=== PATIENT | female | born 1965 | race Caucasian/White ===

== ENCOUNTER 2018-09-24 05:18 | Observation (INO) | payer OTHER ==
[2018-09-24 05:35] VITALS: BMI 33.3
--- NOTE | 2018-09-24 05:35 | PDOC ---
History of Present Illness - General Stated Complaint: CHEST PAIN Time Seen by Provider: 09/24/18 05:34 History Source: Patient - History of Present Illness Initial Comments: 09/24/18 05:45 The patient is a 53 year old female with a PMH of HLD, GERD, MDD, prophylactic DM treatment with Metformin, who presents to our ED this morning c/o acute onset of chest pain. Pain woke patient from sleep @ 3 a.m. and is pressure like , below her breasts B/L radiating to her back. Endorses subjective dyspnea and palpitations. Denies lightheadedness, diaphoresis. No h/o previous similar pain. H/o stress testing 5 years previous which she believes was normal. The patient denies abdominal pain, nausea/vomiting, diarrhea/constipation, dysuria/hematuria, numbness/tingling. NKDA Surgical: appendectomy Social: lifetime non-smoker, social alcohol, denies other toxic habits PMD: Dr. Antonietta Fam Cutting Torch Operator: Dr. Wilson Past History - Past Medical History Allergies/Adverse Reactions: Allergies Allergy/AdvReac Type Severity Reaction Status Date / Time No Known Drug Allergies Allergy Verified 09/24/18 05:48 Home Medications: Ambulatory Orders Aspirin [Aspir 81] 81 mg PO DAILY 10/11/15 Ezetimibe [Zetia] 10 mg PO HS tablet 10/11/15 Montelukast Sodium [Singulair] 4 mg PO HS 10/11/15 Sertraline HCl 25 mg PO DAILY #7 tablet 10/11/15 metFORMIN HCL [Glucophage] 1,000 mg PO BID #14 tablet 10/11/15 Atorvastatin Ca [Lipitor] 40 mg PO HS 11/23/15 Esomeprazole Magnesium 20 mg PO DAILY 09/24/18 Anemia: No Asthma: No Cancer: No Cardiac Disorders: No CVA: No COPD: No CHF: No Dementia: No Diabetes: Yes GI Disorders: Yes (GERD,HEARTBURN, GASTRIC METAPLASIA) Disorders: No HTN: No Hypercholesterolemia: Yes Liver Disease: No Seizures: No Thyroid Disease: No - Surgical History Abdominal Surgery: No Appendectomy: Yes Cardiac Surgery: No Cholecystectomy: No Lung Surgery: No Neurologic Surgery: No Orthopedic Surgery: No - Suicide/Smoking/Psychosocial Hx Smoking History: Never smoked Have you smoked in the past 12 months: No Hx Alcohol Use: Yes (OCCASIONAL) Drug/Substance Use Hx: No Substance Use Type: None Hx Substance Use Treatment: No Review of Systems - Review of Systems Constitutional: No: Chills, Fever HEENTM: No: Blurred Vision, Double Vision Respiratory: Yes: Shortness of Breath Cardiac (ROS): Yes: Chest Pain, Palpitations. No: Lightheadedness, Syncope ABD/GI: No: Constipated, Diarrhea, Nausea, Vomiting *Physical Exam - Physical Exam General Appearance: Yes: Nourished, Appropriately Dressed HEENT: positive: Normal Voice, Hearing Grossly Normal Neck: positive: Trachea midline, Supple Respiratory/Chest: positive: Lungs Clear, Normal Breath Sounds. negative: Labored Respiration, Rapid RR Cardiovascular: positive: S1, S2. negative: Edema, JVD Gastrointestinal/Abdominal: positive: Normal Bowel Sounds, Soft. negative: Distended, Guarding, Rebound, Tenderness, Hernia, Mass Extremity: positive: Normal Capillary Refill, Normal Inspection Integumentary: positive: Normal Color, Dry, Warm Neurologic: positive: Fully Oriented, Alert Heart Score/ECG Review - ECG Impressions Comment:: 09/24/18 05:57 NSR, HR 79, Prolonged TW (430), normal intervals, no deviations, no RACIEL/STD/TWI , good R wave progression V1-V6 ED Treatment Course - LABORATORY CBC & Chemistry Diagram: 09/24/18 06:10 09/24/18 06:10 Medical Decision Making - Medical Decision Making 09/24/18 05:47 53 year old female with chest pain that radiates to her back. VS unremarkable. Frontal diagnosis: r/o ACS, costochondritis, muskoskeletal, gastritis, pancreatitis, cholecystitis, biliary colic. Less likely dissection given BP. Wells Score 0. Will obtain Troponin, BNP, EKG, Troponin x2. Reassess. 09/24/18 05:48 BP 132/67 - Left arm BP 133/71 - Right arm 09/24/18 05:58 ECG non-ischemic as documented in ECG section of EMR 09/24/18 06:34 Patient reassessed. Symptomatically improved s/p Morphine. 09/24/18 06:44 CBC unremarkable Troponin, BNP pending 09/24/18 06:54 Troponin (-) x1. LFT's mildly elevated. Heart Score 4 Will sign patient out to Dr. Posadas (Resident) and Dr. Hess (Attending). *DC/Admit/Observation/Transfer Diagnosis at time of Disposition: Chest pain - Referrals - Patient Instructions - Post Discharge Activity
[2018-09-24] MEDS ORDERED: morphine CARPU-JECT 4 MG/1 ML DISP.SYRIN IVPUSH ONE (05:42)
[2018-09-24] MEDS ORDERED: morphine SULFATE 4 MG/ML VIAL ONE (05:50)
[2018-09-24 06:20] LABS: BASO % 0.5 % (0-2.0); EOS % 1.3 % (0-4.5); HEMOGLOBIN 12.5 GM/dL (10.7-15.3); MCH 28.4 pg (25.7-33.7); MCHC 32.8 g/dl (32.0-36.0); MEAN CELL VOLUME 86.6 fl (80-96); MEAN PLT VOLUME 7.4 fl (7.5-11.1); NEUT % 69.2 % (42.8-82.8); PLATELET COUNT 298 K/MM3 (134-434); RBC 4.39 M/mm3 (3.60-5.2); RDW 14.3 % (11.6-15.6); WHITE BLOOD COUNT 7.9 K/mm3 (4.0-10.0)
--- NOTE | 2018-09-24 06:36 | PDOC ---
Attending Attestation - Resident Resident Name: DaveSu - ED Attending Attestation I have performed the following: I have examined & evaluated the patient, The case was reviewed & discussed with the resident, I agree w/resident's findings & plan, Exceptions are as noted - HPI HPI: 09/24/18 06:30 53F pmh htn here with chest pain. Woke from sleep secondary to intense, central pressure like px a/w dyspnea and palpitations. Pt was given ASA and NTG by ems, took ASA at home as well. GENERAL: Well-appearing, well-nourished. No apparent distress. HEENT: Normocephalic, atraumatic. PERRL, EOM intact. CARDIOVASCULAR: Normal S1, S2. Regular rate and rhythm. PULMONARY: Clear to auscultation bilaterally. ABDOMEN: Soft, non-distended, non-tender. EXTREMITIES: Normal ROM in all four extremities. No gross deformities. SKIN: Warm, dry. No rash NEUROLOGICAL: No focal neurological deficits. typical chest pain, r/o ACS, low risk for PE per Well's f/u labs, trend trops, ekg likely tele obs for high risk cp
[2018-09-24 06:52] LABS: ALBUMIN 3.2 g/dl (3.4-5.0); ALK PHOS 110 U/L (45-117); ANION GAP 12 MMOL/L (8-16); BILIRUBIN,TOTAL 0.4 mg/dL (0.2-1); BLOOD UREA NITROGEN 9 mg/dL (7-18); CALCIUM 8.7 mg/dL (8.5-10.1); CHLORIDE 106 mmol/L (98-107); CO2 25 mmol/L (21-32); CREATININE 0.9 mg/dL (0.55-1.3); GLUCOSE,RANDOM 126 mg/dL (74-106); LIPASE 159 U/L (73-393); N-TERMINAL BNP 27.7 pg/ml (5-125); POTASSIUM 3.9 mmol/L (3.5-5.1); SGOT/AST 73 U/L (15-37); SGPT/ALT 64 U/L (13-61); SODIUM 143 mmol/L (136-145); TOT PROT 6.4 g/dl (6.4-8.2)
--- NOTE | 2018-09-24 07:24 | PDOC ---
*Physical Exam - Vital Signs Last Vital Signs Temp Pulse Resp BP Pulse Ox 97.8 F 76 48 H 133/72 99 09/24/18 05:28 09/24/18 05:45 09/24/18 05:45 09/24/18 05:45 09/24/18 05:45 - Physical Exam Comments: 09/24/18 08:36 General Appearance: Nourished. No Apparent Distress HEENT: No Pharyngeal Erythema, Tonsillar Exudate, Tonsillar Erythema Neck: No Cervical Lymphadenopathy Respiratory/Chest: Lungs Clear, Normal Breath Sounds. No Crackles, Rales, Rhonchi, Wheezing Cardiovascular: Regular Rhythm, Regular Rate. No Murmur, Gallops, Rubs Gastrointestinal/Abdominal: Normal Bowel Sounds, Soft. No Guarding, Rebound, Tenderness Musculoskeletal: No CVA Tenderness Extremity: Normal Capillary Refill Integumentary: Normal Color, Dry, Warm Neurologic: Fully Oriented, Alert, Normal Mood/Affect, Normal Response ED Treatment Course - LABORATORY CBC & Chemistry Diagram: 09/24/18 06:10 09/24/18 06:10 - ADDITIONAL ORDERS Additional order review: Laboratory Results 09/24/18 06:10 Sodium 143 Potassium 3.9 Chloride 106 Carbon Dioxide 25 Anion Gap 12 BUN 9 Creatinine 0.9 Creat Clearance w eGFR > 60 Random Glucose 126 H Calcium 8.7 Total Bilirubin 0.4 AST 73 H ALT 64 H Alkaline Phosphatase 110 Creatine Kinase 92 Troponin I < 0.02 B-Natriuretic Peptide 27.7 Total Protein 6.4 Albumin 3.2 L Lipase 159 09/24/18 06:10 RBC 4.39 MCV 86.6 MCHC 32.8 RDW 14.3 MPV 7.4 L Neutrophils % 69.2 Lymphocytes % 23.0 Monocytes % 6.0 Eosinophils % 1.3 Basophils % 0.5 - Medications Given in the ED: ED Medications Discontinued Medications Generic Name Dose Route Start Last Admin Trade Name Freq PRN Reason Stop Dose Admin Morphine Sulfate 4 mg 09/24/18 05:42 09/24/18 05:55 Morphine Injection - IVPUSH 09/24/18 05:43 4 mg ONCE ONE Administration Progress Note - Progress Note Progress Note: The patient is a 53 year old female with a history of HTN, HLD, Pre-diabetes who presents for evaluation of chest pain. The patient is pending lab results and likely observation admission for concerning chest pain. Medical Decision Making - Medical Decision Making 09/24/18 08:37 CBC, cmp, troponin are unremarkable. Chest plain film is unremarkable. EKG does not demonstrate any concerning findings. We discussed the case with the admitting team who accepted the patient for observation admission. *DC/Admit/Observation/Transfer Diagnosis at time of Disposition: Chest pain Qualifiers: Chest pain type: unspecified Qualified Code(s): R07.9 - Chest pain, unspecified - Discharge Dispostion Condition at time of disposition: Stable Decision to Admit order: Yes - Referrals - Patient Instructions - Post Discharge Activity
--- NOTE | 2018-09-24 07:26 | HP ---
CHIEF COMPLAINT:Chest pain PCP: Dr. Antonietta Fam Sword Swallower: Dr. Wilson (last seen 5yrs ago) HISTORY OF PRESENT ILLNESS: 53 yo F with PMHx of HTN, HLD, and DMII presents with chest pain. She states that she was awoken from sleep with chest pain. She describes constant 8/10 substernal chest pressure that radiated below bilateral breast and to the back. Associated with some SOB. No alleviating or aggravating factors. She saw a special forces senior sergeant for chest pain 5yrs ago and stress test was negative at that time. Pain is not reproducible with palpation. Of note she endorses that occasionally she feels as if her heart "flips". This feeling only last for a few seconds but it does concern her that she has some irregular heart beat. Currently denies CP, REBOLLAR, SOB, palpitations, abdominal pain, fever,chills, nausea or vomiting. ER course was notable for: (1)EKG: NSR @ 69 with normal intervals and axis , no ischemic changes. ;ASA given (2)Troponin I (-) x1 (3)Lipase WNL Recent Travel: NONE PAST MEDICAL HISTORY: HTN, HLD, DM II, GERD PAST SURGICAL HISTORY: Appendectomy Social History: Smoking:never Alcohol:social Drugs: denies Family History: Allergies No Known Drug Allergies Allergy (Verified 09/24/18 05:48) HOME MEDICATIONS: Home Medications Medication Instructions Recorded Aspirin [Aspir 81] 81 mg PO DAILY 10/11/15 Ezetimibe [Zetia] 10 mg PO HS tablet 10/11/15 Montelukast Sodium [Singulair] 4 mg PO HS 10/11/15 Sertraline HCl 25 mg PO DAILY #7 tablet 10/11/15 metFORMIN HCL [Glucophage] 1,000 mg PO BID #14 tablet 10/11/15 Atorvastatin Ca [Lipitor] 40 mg PO HS 11/23/15 Esomeprazole Magnesium 20 mg PO DAILY 09/24/18 REVIEW OF SYSTEMS CONSTITUTIONAL: Absent: fever, chills, diaphoresis, generalized weakness, malaise, loss of appetite, weight change HEENT: Absent: rhinorrhea, nasal congestion, throat pain, throat swelling, difficulty swallowing, mouth swelling, ear pain, eye pain, visual changes CARDIOVASCULAR:chest pain, palpitations Absent: , syncope, , irregular heart rate, lightheadedness, peripheral edema RESPIRATORY: shortness of breath Absent: cough, , dyspnea with exertion, orthopnea, wheezing, stridor, hemoptysis GASTROINTESTINAL: Absent: abdominal pain, abdominal distension, nausea, vomiting, diarrhea, constipation, melena, hematochezia GENITOURINARY: Absent: dysuria, frequency, urgency, hesitancy, hematuria, flank pain, genital pain MUSCULOSKELETAL: Absent: myalgia, arthralgia, joint swelling, back pain, neck pain SKIN: Absent: rash, itching, pallor HEMATOLOGIC/IMMUNOLOGIC: Absent: easy bleeding, easy bruising, lymphadenopathy, frequent infections ENDOCRINE: Absent: unexplained weight gain, unexplained weight loss, heat intolerance, cold intolerance NEUROLOGIC: Absent: headache, focal weakness or paresthesias, dizziness, unsteady gait, seizure, mental status changes, bladder or bowel incontinence PSYCHIATRIC: Absent: anxiety, depression, suicidal or homicidal ideation, hallucinations. PHYSICAL EXAMINATION Vital Signs - 24 hr 09/24/18 09/24/18 05:28 05:45 Temperature 97.8 F Pulse Rate 85 76 Respiratory 18 48 H Rate Blood Pressure 137/69 133/72 O2 Sat by Pulse 100 99 Oximetry (%) GENERAL: AAOx3, NAD HEAD: NCAT EYES: PERRLA,EOMI, sclera anicteric, conjunctiva clear. No lid lag. EARS, NOSE, THROAT: Moist mucous membranes. NECK:Supple without lymphadenopathy, JVD, or masses. LUNGS: CTAB. No wheezes, and no crackles. No accessory muscle use. HEART: RRR, normal S1 and S2 without murmur, rub or gallop. ABDOMEN: Soft, NTND, NABS, no guarding, no rebound, no masses. No hepatomegaly or splenomegaly. MUSCULOSKELETAL: Normal range of motion at all joints. No bony deformities or tenderness. No CVA tenderness. LOWER EXTREMITIES: 2+ pulses, warm, well-perfused. No calf tenderness. trace edema. NEUROLOGICAL: Cranial nerves II-XII intact. Normal speech. PSYCHIATRIC: Cooperative. Good eye contact. Appropriate mood and affect. SKIN: Warm, dry, normal turgor, no rashes or lesions noted, normal capillary refill. Laboratory Results - last 24 hr 09/24/18 09/24/18 06:10 06:10 WBC 7.9 RBC 4.39 Hgb 12.5 Hct 38.0 MCV 86.6 MCH 28.4 MCHC 32.8 RDW 14.3 Plt Count 298 MPV 7.4 L Absolute Neuts (auto) 5.5 Neutrophils % 69.2 Lymphocytes % 23.0 Monocytes % 6.0 Eosinophils % 1.3 Basophils % 0.5 Nucleated RBC % 0 Sodium 143 Potassium 3.9 Chloride 106 Carbon Dioxide 25 Anion Gap 12 BUN 9 Creatinine 0.9 Creat Clearance w eGFR > 60 Random Glucose 126 H Calcium 8.7 Total Bilirubin 0.4 AST 73 H ALT 64 H Alkaline Phosphatase 110 Creatine Kinase 92 Troponin I < 0.02 B-Natriuretic Peptide 27.7 Total Protein 6.4 Albumin 3.2 L Lipase 159 ASSESSMENT/PLAN: 53 yo F with PMHx of HTN, HLD, and DMII presents with chest pain, placed on observation to rule out ACS. Problem List - Problem (1) Chest pain Assessment/Plan: will r/o ACS * Place on observation to telemetry * continuous monitoring * trend trops Q6H (first set negative) * Consult cardiology for possible stress test. * ASA given in ED - continue ASA 81mg daily * lipid panel pending. * Echo pending. (2) DM II (diabetes mellitus, type II), controlled Assessment/Plan: metformin held * ADA diet * BGM ACHS * ISS ACHS (3) Anxiety and depression Assessment/Plan: * Amitriptyline HCl (Elavil -) 25 mg PO HS * Sertraline HCl (Zoloft -) 25 mg PO DAILY (4) Reactive airway disease Assessment/Plan: Montelukast Sodium (Singulair -) 5 mg PO HS (5) DVT prophylaxis Assessment/Plan: Lovenox 40mg SQ daily Visit type - Emergency Visit Emergency Visit: Yes ED Registration Date: 09/24/18 Care time: The patient presented to the Emergency Department on the above date and was hospitalized for further evaluation of their emergent condition. - New Patient This patient is new to me today: Yes Date on this admission: 09/26/18 - Critical Care Critical Care patient: No
[2018-09-24 08:13] LABS: CHOLESTEROL 192 mg/dL (50-200); HDL CHOLESTEROL 49 mg/dL (40-60); TRIGLYCERIDES 75 mg/dL (0-150)
--- NOTE | 2018-09-24 11:07 | EKG ---
Test Reason : Blood Pressure : / mmHG Vent. Rate : 079 BPM Atrial Rate : 079 BPM P-R Int : 142 ms QRS Dur : 086 ms QT Int : 430 ms P-R-T Axes : 053 025 032 degrees QTc Int : 493 ms NORMAL SINUS RHYTHM PROLONGED QT ABNORMAL ECG WHEN COMPARED WITH ECG OF 20-JUN-2010 16:02, NO SIGNIFICANT CHANGE WAS FOUND Confirmed by SAILAJA RUBI MD ([id number]) on 09/24/2018 11:07:10 AM Referred By: Confirmed By:SAILAJA RUBI MD
[2018-09-24] MEDS: SERTRALINE HCL 25 MG TABLET (FP) PO SCH (11:16)
[2018-09-24] MEDS: ENOXAPARIN NA (PORCINE) 40 MG/0.4 ML DISP.SYRIN SQ SCH (11:16)
[2018-09-24] MEDS: PANTOPRAZOLE 20 MG TABLET (FP) PO SCH (11:16)
[2018-09-24] MEDS: ASPIRIN COATED 81 MG TABLET.EC PO SCH (11:16)
[2018-09-24] MEDS: INSULIN SLIDING SCALE (NOVOLOG) 1 VIAL SQ SCH ×3 (11:23→21:57)
--- NOTE | 2018-09-24 11:50 | PN ---
Teaching Attending Note Name of Resident: Amanuel Madrid ATTENDING PHYSICIAN STATEMENT I saw and evaluated the patient. I reviewed the resident's note and discussed the case with the resident. I agree with the resident's findings and plan as documented. SUBJECTIVE: OBJECTIVE: Vital Signs Period Temp Pulse Resp BP Sys/Thakkar Pulse Ox Last 24 Hr 97.8 F 76-85 18-48 133-137/69-72 99-100 Laboratory Results - last 24 hr 09/24/18 09/24/18 09/24/18 06:10 06:10 11:22 WBC 7.9 RBC 4.39 Hgb 12.5 Hct 38.0 MCV 86.6 MCH 28.4 MCHC 32.8 RDW 14.3 Plt Count 298 MPV 7.4 L Absolute Neuts (auto) 5.5 Neutrophils % 69.2 Lymphocytes % 23.0 Monocytes % 6.0 Eosinophils % 1.3 Basophils % 0.5 Nucleated RBC % 0 Sodium 143 Potassium 3.9 Chloride 106 Carbon Dioxide 25 Anion Gap 12 BUN 9 Creatinine 0.9 Creat Clearance w eGFR > 60 POC Glucometer [id number] Random Glucose 126 H Calcium 8.7 Total Bilirubin 0.4 AST 73 H ALT 64 H Alkaline Phosphatase 110 Creatine Kinase 92 Troponin I < 0.02 B-Natriuretic Peptide 27.7 Total Protein 6.4 Albumin 3.2 L Triglycerides 75 Cholesterol 192 Total LDL Cholesterol 123 H HDL Cholesterol 49 Lipase 159 Current Medications Generic Name Dose Route Start Last Admin Trade Name Freq PRN Reason Stop Dose Admin Amitriptyline HCl 25 mg 09/24/18 22:00 Elavil - PO HS ALETHA Aspirin 81 mg 09/24/18 10:00 09/24/18 11:16 Ecotrin - PO 81 mg DAILY ALETHA Administration Atorvastatin Calcium 40 mg 09/24/18 22:00 Lipitor - PO HS ALETHA Ezetimibe 10 mg 09/24/18 22:00 Zetia - PO HS ALETHA Enoxaparin Sodium 40 mg 09/24/18 10:00 09/24/18 11:16 Lovenox - SQ 40 mg DAILY ALETHA Administration Insulin Aspart 1 vial 09/24/18 11:00 09/24/18 11:23 Novolog Vial Sliding Scale - SQ Not Given ACHS ALETHA Protocol Montelukast Sodium 5 mg 09/24/18 22:00 Singulair - PO HS ALETHA Pantoprazole Sodium 20 mg 09/24/18 10:00 09/24/18 11:16 Protonix - PO 20 mg DAILY ALETHA Administration Sertraline HCl 25 mg 09/24/18 10:00 09/24/18 11:16 Zoloft - PO 25 mg DAILY ALETHA Administration ASSESSMENT AND PLAN:
--- NOTE | 2018-09-24 12:07 | ECHO ---
Name: DIONNE HUMPHREYS Exam:Adult Echocardiogram Study Date: 09/24/2018 09:14 AM Age: 53 yrs Reason For Study: LVF R/O ACS Height: 65 in Weight: 200 lb BSA: 2.0 m2 MMode/2D Measurements & Calculations IVSd: 0.91 cm Ao root diam: 2.5 cm LVIDd: 4.5 cm LA dimension: 3.9 cm LVIDs: 2.8 cm LVPWd: 0.73 cm EDV(Teich): 93.2 ml ESV(Teich): 30.1 ml Doppler Measurements & Calculations MV E max eryn: 57.8 cm/sec Ao V2 max: 144.2 cm/sec MV A max eryn: 52.3 cm/sec Ao max P.3 mmHg MV E/A: 1.1 MV dec time: 0.22 sec LV V1 max P.6 mmHg TR max eryn: 196.3 cm/sec LV V1 max: 63.9 cm/sec TR max P.5 mmHg Med Peak E' Eryn: 5.7 cm/sec Med E/e': 10.1 Lat Peak E' Eryn: 8.1 cm/sec Lat E/e': 7.1 Procedure A complete two-dimensional transthoracic echocardiogram was performed (2D, M-mode, Doppler and color flow Doppler). Left Ventricle The left ventricular size, thickness and function are normal. The left ventricular ejection fraction is normal. Ejection Fraction = 60-65%. The left ventricular wall motion is normal. Right Ventricle The right ventricle is normal in size and function. Atria Normal left and right atrial size and function. Mitral Valve There is trace mitral regurgitation. Tricuspid Valve There is trace tricuspid regurgitation. There was insufficient TR detected to calculate RV systolic p ressure. Aortic Valve The aortic valve is trileaflet. No hemodynamically significant valvular aortic stenosis. No aortic regurgitation is present. Pulmonic Valve There is no pulmonic valvular regurgitation. Great Vessels The aortic root is normal size. Pericardium/Pleura There is no pericardial effusion. Interpretation Summary The left ventricular size, thickness and function are normal The right ventricle is normal in size and function. There is trace mitral regurgitation. There is trace tricuspid regurgitation. MD Sanchez Cat 09/24/2018 12:06 PM
--- NOTE | 2018-09-24 14:52 | CONSULT ---
Consultation: REQUESTING PROVIDER: Dr May CONSULT REQUEST: We have been asked to medically evaluate this patient for chest pain. HISTORY OF PRESENT ILLNESS: The patient is a 53 year old female with a PMH of HTN, dyslipidemia, DM, anxiety that presented to the hospital complaining of chest pain that started at 4 AM this morning. It was pressure like, 8-9/10, constant, mid sternal, radiating to left and right upper abdomen and to the back. She also reports feeling of heart racing and dizziness during that time. The patient chest pain resolved in emergency room after Morphine was given (around 5AM). Currently the patient denies having chest pain. She also denies palpitations, SOB, dizziness, nausea, vomiting. Occasionally she experiences irregular heart rate associated with dizziness, that lasts several seconds and happens only when sitting. The patient had similar chest pain but located higher in her chest about 5 years ago. She visited [facility] and had stress test done that was negative at that time. She never followed with her deburrer strip again. She denies leg swelling, dyspnea with exertion. REVIEW OF SYSTEMS: CONSTITUTIONAL: Absent: fever, chills, diaphoresis, generalized weakness, HEENT: Absent: rhinorrhea, nasal congestion CARDIOVASCULAR: Absent: chest pain, syncope, palpitations, irregular heart rate, lightheadedness , peripheral edema RESPIRATORY: Absent: cough, shortness of breath, dyspnea with exertion, orthopnea, wheezing GASTROINTESTINAL: Absent: abdominal pain, abdominal distension, nausea, vomiting, diarrhea, constipation GENITOURINARY: Absent: dysuria, frequency, urgency MUSCULOSKELETAL: Absent: myalgia, arthralgia, joint swelling, back pain NEUROLOGIC: Absent: headache, focal weakness or paresthesias, dizziness PSYCHIATRIC: Absent: anxiety, depression PHYSICAL EXAMINATION Vital Signs - 24 hr 09/24/18 09/24/18 09/24/18 05:28 05:45 07:05 Temperature 97.8 F Pulse Rate 85 76 Pulse Rate [ Apical] Respiratory 18 48 H 18 Rate Blood Pressure 137/69 133/72 Blood Pressure [Right Arm] O2 Sat by Pulse 100 99 100 Oximetry (%) 09/24/18 09/24/18 09/24/18 07:10 10:00 14:31 Temperature 98.6 F Pulse Rate Pulse Rate [ 88 75 Apical] Respiratory 18 18 Rate Blood Pressure Blood Pressure 128/78 135/74 [Right Arm] O2 Sat by Pulse 100 98 97 Oximetry (%) GENERAL: Awake, alert, and fully oriented, in no acute distress. HEAD: Normal with no signs of trauma. EYES: Pupils equal, round and reactive to light, extraocular movements intact, sclera anicteric, conjunctiva clear. No lid lag. EARS, NOSE, THROAT: Ears normal, nares patent, oropharynx clear without exudates. Moist mucous membranes. NECK: Normal range of motion, supple without lymphadenopathy, JVD, or masses. LUNGS: Breath sounds equal, clear to auscultation bilaterally. No wheezes, and no crackles. No accessory muscle use. HEART: Regular rate and rhythm, normal S1 and S2 without murmur, rub or gallop. ABDOMEN: Soft, nontender, not distended, normoactive bowel sounds, no guarding, no rebound, no masses. No hepatomegaly or splenomegaly. MUSCULOSKELETAL: Normal range of motion at all joints. No bony deformities or tenderness. No CVA tenderness. UPPER EXTREMITIES: 2+ pulses, warm, well-perfused. No cyanosis. No clubbing. Cap refill <2 seconds. No peripheral edema. LOWER EXTREMITIES: 2+ pulses, warm, well-perfused. No calf tenderness. No peripheral edema. NEUROLOGICAL: Cranial nerves II-XII intact. Normal speech. Normal gait. PSYCHIATRIC: Cooperative. Good eye contact. Appropriate mood and affect. SKIN: Warm, dry, normal turgor, no rashes or lesions noted. Laboratory Results - last 24 hr 09/24/18 09/24/18 09/24/18 06:10 06:10 11:22 WBC 7.9 RBC 4.39 Hgb 12.5 Hct 38.0 MCV 86.6 MCH 28.4 MCHC 32.8 RDW 14.3 Plt Count 298 MPV 7.4 L Absolute Neuts (auto) 5.5 Neutrophils % 69.2 Lymphocytes % 23.0 Monocytes % 6.0 Eosinophils % 1.3 Basophils % 0.5 Nucleated RBC % 0 Sodium 143 Potassium 3.9 Chloride 106 Carbon Dioxide 25 Anion Gap 12 BUN 9 Creatinine 0.9 Creat Clearance w eGFR > 60 POC Glucometer [id number] Random Glucose 126 H Calcium 8.7 Total Bilirubin 0.4 AST 73 H ALT 64 H Alkaline Phosphatase 110 Creatine Kinase 92 Troponin I < 0.02 B-Natriuretic Peptide 27.7 Total Protein 6.4 Albumin 3.2 L Triglycerides 75 Cholesterol 192 Total LDL Cholesterol 123 H HDL Cholesterol 49 Lipase 159 09/24/18 12:10 WBC RBC Hgb Hct MCV MCH MCHC RDW Plt Count MPV Absolute Neuts (auto) Neutrophils % Lymphocytes % Monocytes % Eosinophils % Basophils % Nucleated RBC % Sodium Potassium Chloride Carbon Dioxide Anion Gap BUN Creatinine Creat Clearance w eGFR POC Glucometer Random Glucose Calcium Total Bilirubin AST ALT Alkaline Phosphatase Creatine Kinase Troponin I < 0.02 B-Natriuretic Peptide Total Protein Albumin Triglycerides Cholesterol Total LDL Cholesterol HDL Cholesterol Lipase Active Medications Generic Name Dose Route Start Last Admin Trade Name Freq PRN Reason Stop Dose Admin Amitriptyline HCl 25 mg 09/24/18 22:00 Elavil - PO HS ALETHA Aspirin 81 mg 09/24/18 10:00 09/24/18 11:16 Ecotrin - PO 81 mg DAILY ALETHA Administration Atorvastatin Calcium 40 mg 09/24/18 22:00 Lipitor - PO HS ALETHA Ezetimibe 10 mg 09/24/18 22:00 Zetia - PO HS ALETHA Enoxaparin Sodium 40 mg 09/24/18 10:00 09/24/18 11:16 Lovenox - SQ 40 mg DAILY ALETHA Administration Insulin Aspart 1 vial 09/24/18 11:00 09/24/18 11:23 Novolog Vial Sliding Scale - SQ Not Given ACHS ALETHA Protocol Montelukast Sodium 5 mg 09/24/18 22:00 Singulair - PO HS ALETHA Pantoprazole Sodium 20 mg 09/24/18 10:00 09/24/18 11:16 Protonix - PO 20 mg DAILY ALETHA Administration Sertraline HCl 25 mg 09/24/18 10:00 09/24/18 11:16 Zoloft - PO 25 mg DAILY ALETHA Administration ASSESSMENT/PLAN: The patient is a 53 year old female with a PMH of HTN, dyslipidemia, DM, anxiety that presented to the hospital complaining of chest pain that started at 4 AM this morning. She is admitted for chest pain, r/o ACS. Atypical chest pain HTN dyslipidemia DM anxiety Plan: Atypical chest pain -low probability that the patient had acute cardiac event but in light of PMH of diabetes and obesity it needs to be r/o -EKG: NSR, normal axis, Qt prolongation, no radha/std -ECHO: LV and RV size, thickness and function nl, EF 60-65%, trace MR, TR -f/u troponin level, serial ekg -continue ASA -will obtain stress ECHO tomorrow Dr Hernandez PGY [address] Lanier Dispo: We will continue to follow the patient. Thank you for this consultative opportunity. Problem List - Problems (1) Anxiety and depression Code(s): F41.9 - ANXIETY DISORDER, UNSPECIFIED; F32.9 - MAJOR DEPRESSIVE DISORDER, SINGLE EPISODE, UNSPECIFIED (2) Chest pain Code(s): R07.9 - CHEST PAIN, UNSPECIFIED Qualifiers: Chest pain type: unspecified Qualified Code(s): R07.9 - Chest pain, unspecified (3) DM II (diabetes mellitus, type II), controlled Code(s): E11.9 - TYPE 2 DIABETES MELLITUS WITHOUT COMPLICATIONS Qualifiers: Diabetes mellitus penitentiary insulin use: without terminal supervisor use Diabetes mellitus complication status: without complication Qualified Code(s): E11.9 - Type 2 diabetes mellitus without complications (4) DVT prophylaxis Code(s): HYJ9057 - (5) Reactive airway disease Code(s): J45.909 - UNSPECIFIED ASTHMA, UNCOMPLICATED Qualifiers: Asthma severity: unspecified severity Asthma complication type: uncomplicated Visit type - Emergency Visit Emergency Visit: Yes ED Registration Date: 09/24/18 Care time: The patient presented to the Emergency Department on the above date and was hospitalized for further evaluation of their emergent condition. - New Patient This patient is new to me today: Yes Date on this admission: 09/24/18 - Critical Care Critical Care patient: No
--- NOTE | 2018-09-24 16:23 | CON.CARD ---
Cardiology Consult (text) - Consultation Consultation Note: Patient was seen with the resident and I reviewed the history and testing. 53 F with DM, HTN HLD and anxiety was admitted with sustained mid sternal CP radiating to her back and associated with dizziness. CP resolved after morphine and currently she is comfortable. Echocardiogram, ECG and CE are benign. Given nature of her pain and risk factors will advise stress echocardiogram prior to discharge.
[2018-09-24] MEDS ORDERED: PT OWN MED DRAWER 7, Y5N ONE (20:58)
[2018-09-24] MEDS ORDERED: AMITRIPTYLINE HCL 25 MG TABLET (FP) PO SCH (22:00)
[2018-09-24] MEDS ORDERED: MONTELUKAST NA 5 MG TAB.CHEW PO SCH (22:00)
[2018-09-24] MEDS ORDERED: ATORVASTATIN CA 40 MG TABLET (FP) PO SCH (22:00)
[2018-09-24] MEDS ORDERED: PATIENT'S OWN MEDICATION (NON-FORMULARY) (Montelukast Sodium [Singulair] 4 MG) PO SCH (22:00)
[2018-09-24] MEDS ORDERED: EZETIMIBE 10 MG TABLET (FP) PO SCH (22:00)
[2018-09-25] MEDS: INSULIN SLIDING SCALE (NOVOLOG) 1 VIAL SQ SCH ×2 (06:04→12:15)
[2018-09-25 07:20] LABS: BASO % 0.6 % (0-2.0); EOS % 2.3 % (0-4.5); HEMATOCRIT 39.2 % (32.4-45.2); LYMPH % 32.2 % (8-40); MCH 28.6 pg (25.7-33.7); MCHC 33.2 g/dl (32.0-36.0); MEAN PLT VOLUME 7.8 fl (7.5-11.1); MONO % 6.5 % (3.8-10.2); NEUT % 58.4 % (42.8-82.8); PLATELET COUNT 306 K/MM3 (134-434); RBC 4.56 M/mm3 (3.60-5.2); RDW 13.6 % (11.6-15.6); WHITE BLOOD COUNT 5.7 K/mm3 (4.0-10.0)
[2018-09-25 08:03] LABS: ALBUMIN 3.4 g/dl (3.4-5.0); ALK PHOS 125 U/L (45-117); ANION GAP 8 MMOL/L (8-16); BILIRUBIN,TOTAL 0.8 mg/dL (0.2-1); BLOOD UREA NITROGEN 13 mg/dL (7-18); CALCIUM 8.7 mg/dL (8.5-10.1); CHLORIDE 106 mmol/L (98-107); CO2 28 mmol/L (21-32); CREATININE 0.7 mg/dL (0.55-1.3); GLUCOSE,RANDOM 108 mg/dL (74-106); PHOSPHOROUS 3.5 mg/dL (2.5-4.9); POTASSIUM 4.8 mmol/L (3.5-5.1); SGOT/AST 58 U/L (15-37); SGPT/ALT 106 U/L (13-61); SODIUM 142 mmol/L (136-145); TOT PROT 6.7 g/dl (6.4-8.2)
[2018-09-25] MEDS: PANTOPRAZOLE 20 MG TABLET (FP) PO SCH (12:18)
[2018-09-25] MEDS: SERTRALINE HCL 25 MG TABLET (FP) PO SCH (12:18)
[2018-09-25] MEDS: ASPIRIN COATED 81 MG TABLET.EC PO SCH (12:18)
[2018-09-25] MEDS: ENOXAPARIN NA (PORCINE) 40 MG/0.4 ML DISP.SYRIN SQ SCH (12:18)
--- NOTE | 2018-09-25 13:05 | ECHO ---
Name: DIONNE SOTELO Exam:Dobutamine Stress Echocardiogram Study Date: 09/25/2018 11:28 AM Age: 53 yrs Reason For Study: r/o cad Height: 65 in Weight: 200 lb BSA: 2.0 m2 Stress Comments Resting systolic blood pressure was within normal limits. Normal resting electrocardiogram. A treadmill exercise test according to Isaías protocol was performed. Maximum Heart Rate achieved was 90-95% of maximum age-predicted heart rate. Total Stress Time was 6-7 minutes. Exercise Echocardiogram Negative exercise stress echocardiogram, adequate by heart rate criteria, without symptoms, diagnosti c EKG changes or echocardiographic evidence of ischemia. Interpretation Summary Negative exercise stress echocardiogram, adequate by heart rate criteria, without symptoms, diagnosti c EKG changes or echocardiographic evidence of ischemia Reading Physician: MD Monge *Stephanie 09/25/2018 01:04 PM
[2018-09-25 13:58] VITALS: BP 136/75; PULSE 77; TEMP 98.5
--- NOTE | 2018-09-25 14:46 | PN ---
Progress Note, Physician Chief Complaint: Cardiology FU Telem NSR Feels well - Current Medication List Current Medications: Active Medications Amitriptyline HCl (Elavil -) [address] [facility] Last Admin: 09/24/18 21:57 Dose: 25 mg Aspirin (Ecotrin -) 81 mg PO DAILY [facility] Last Admin: 09/25/18 12:18 Dose: 81 mg Atorvastatin Calcium (Lipitor -) [address] [facility] Last Admin: 09/24/18 21:57 Dose: 40 mg Ezetimibe (Zetia -) [address] [facility] Last Admin: 09/24/18 21:57 Dose: 10 mg Enoxaparin Sodium (Lovenox -) 40 mg SQ DAILY [facility] Last Admin: 09/25/18 12:18 Dose: 40 mg Insulin Aspart (Novolog Vial Sliding Scale -) 1 vial SQ [facility]; Protocol Last Admin: 09/25/18 12:15 Dose: Not Given Montelukast Sodium (Singulair -) [address] [facility] Last Admin: 09/24/18 21:57 Dose: 5 mg Pantoprazole Sodium (Protonix -) 20 mg PO DAILY [facility] Last Admin: 09/25/18 12:18 Dose: 20 mg Sertraline HCl (Zoloft -) 25 mg PO DAILY [facility] Last Admin: 09/25/18 12:18 Dose: 25 mg - Objective Vital Signs: Vital Signs Temperature 98.5 F 09/25/18 13:57 Pulse Rate 77 09/25/18 13:57 Respiratory Rate 20 09/25/18 13:57 Blood Pressure 136/75 09/25/18 13:57 O2 Sat by Pulse Oximetry (%) 98 09/25/18 07:00 Constitutional: Yes: Well Nourished, No Distress Eyes: Yes: Conjunctiva Clear HENT: Yes: Atraumatic, Normocephalic Neck: Yes: Supple, Trachea Midline Cardiovascular: Yes: Regular Rate and Rhythm Respiratory: Yes: Regular, CTA Bilaterally Gastrointestinal: Yes: Normal Bowel Sounds Labs: CBC, BMP 09/25/18 06:00 09/25/18 06:00 Problem List - Problems (1) Chest pain Code(s): R07.9 - CHEST PAIN, UNSPECIFIED Qualifiers: Chest pain type: unspecified Qualified Code(s): R07.9 - Chest pain, unspecified Assessment/Plan Non cardiac chest pain Low risk stress test. Continue primary prevention measures.
--- NOTE | 2018-09-25 16:36 | PN ---
Teaching Attending Note ATTENDING PHYSICIAN STATEMENT I saw and evaluated the patient. I reviewed the resident's note and discussed the case with the resident. I agree with the resident's findings and plan as documented. SUBJECTIVE:denies any ,more episode of chest pain while in the hospital. OBJECTIVE: Last Vital Signs Temp Pulse Resp BP Pulse Ox 98.5 F 77 20 136/75 98 09/25/18 13:57 09/25/18 13:57 09/25/18 13:57 09/25/18 13:57 09/25/18 15:00 in no distress CVS;S1S2 CTAB Abd: BS+ NT/ND EXT: no edema2+ DP/ radial pulses Stress Echo reviewed no ischemic findings ASSESSMENT AND PLAN: 53 F with DM, HTN HLD and anxiety, obesity, P/W non anginal chest pain, non anginal CP, MEIR, negtive stress test,will C/W home medication, SA, statin Life style changes; encouraged to be more active obesit: encouraged to loose weight and possible means life diet options discussed Dispo:home today with plan for F/u wiht PMD
--- NOTE | 2018-09-27 19:18 | EKG ---
Test Reason : Blood Pressure : / mmHG Vent. Rate : 076 BPM Atrial Rate : 076 BPM P-R Int : 138 ms QRS Dur : 086 ms QT Int : 412 ms P-R-T Axes : 020 001 011 degrees QTc Int : 463 ms NORMAL SINUS RHYTHM NORMAL ECG WHEN COMPARED WITH ECG OF 24-SEP-2018 05:29, NO SIGNIFICANT CHANGE WAS FOUND Confirmed by PAM BARAJAS MD ([id number]) on 09/27/2018 7:18:22 PM Referred By: Confirmed By:PAM BARAJAS MD
== END 2018-09-25 15:42 | disposition home or self-care (01) ==
LOC: JER 05:18 → JERBED 07:24 → J4S 15:24
PROVIDERS: ADMIT Internal Medicine; ATTEND Internal Medicine
PROC: 3E033NZ Introduction of Analgesics, Hypnotics, Sedatives into Peripheral Vein, Percutaneous Approach (ICD-10-PCS; principal; 2018-09-24)
PROC: 3E013GC Introduction of Other Therapeutic Substance into Subcutaneous Tissue, Percutaneous Approach (ICD-10-PCS; 2018-09-24)
DX: I10 Essential (primary) hypertension (principal); E78.5 Hyperlipidemia, unspecified; E11.9 Type 2 diabetes mellitus without complications; K21.9 Gastro-esophageal reflux disease without esophagitis; F33.9 Major depressive disorder, recurrent, unspecified; F41.8 Other specified anxiety disorders; J45.909 Unspecified asthma, uncomplicated; E66.9 Obesity, unspecified; Z68.33 Body mass index [BMI] 33.0-33.9, adult; Z79.82 Long term (current) use of aspirin; Z79.84 Long term (current) use of oral hypoglycemic drugs
CPT/HCPCS: 36415; 71045-TC-FY; 76705-TC; 80053; 80061; 82550; 82962; 83690; 83721; 83735; 83880; 84100; 84484; 85025; 93005; 93010; 93306-TC; 93351; 99285-25; G0378

== ENCOUNTER → 2022-11-21 | Day surgery (SDC) | payer OTHER | END | disposition home or self-care (01) | LOC: FMAMMOTONE 08:38 | PROVIDERS: ATTEND Obstetrics & Gynecology | PROC: 0HBT3ZX Excision of Right Breast, Percutaneous Approach, Diagnostic (ICD-10-PCS; principal; 2022-11-21) | DX: N60.11 Diffuse cystic mastopathy of right breast (principal); R92.0 Mammographic microcalcification found on diagnostic imaging of breast | CPT/HCPCS: 19081; 76098-TC-FY; 87899; 88305-TC; 88342-TC; A4648 ==